=== PATIENT | male | born 1955 | race Native Hawaiian/Other Pacific Islander ===

== ENCOUNTER 2017-05-12 11:52 | Outpatient (CLI) | payer OTHER ==
[~2017-05-12 11:52] MED LIST: AMOX500T5 PO; ASPIR-LOW81 MG PO; BENICAR20 MG PO; CLOP75TA2 PO; DIAZEPAM10 MG PO; FLUOXETINE60 MG PO; GABA300C2 PO; LIPITOR40 MG PO; NITRO-DUR0.4 MG/HR SL
== END 2017-05-12 12:55 | disposition home or self-care (01) ==
LOC: RAD 11:52
DX: M25.511 Pain in right shoulder (principal)

== ENCOUNTER 2017-07-07 10:04 | Outpatient (CLI) | payer OTHER | END 2017-07-07 19:12 | disposition home or self-care (01) | LOC: RAD 10:04 | DX: Z01.818 Encounter for other preprocedural examination (principal) ==